=== PATIENT | female | born 1945 | race Caucasian/White ===

== ENCOUNTER 2019-06-05 08:50 | Outpatient (CLI) | payer MEDICARE, OTHER, SELFPAY ==
--- NOTE | 2019-06-05 08:52 | MM_ITS ---
WS: [id number] BILATERAL SCREENING DIGITAL MAMMOGRAM WITH CAD HISTORY: SCREENING COMPARISON: 01/31/2018 and 01/30/2017 Bilateral CC and MLO views submitted. Computer aided detection analyzed. Breast composition: There are scattered areas of fibroglandular density. No suspicious masses, microc alcifications or architectural distortion. Benign calcifications. MM/[id number] IMPRESSION: BI-RADS: 2-Benign FOLLOW UP: 1 Year Follow-up
== END 2019-06-05 08:51 | disposition home or self-care (01) ==
LOC: RADSHAW 08:50
PROVIDERS: Family Provider Internal Medicine; PCP Internal Medicine; Visit Provider Internal Medicine
DX: Z12.31 Encounter for screening mammogram for malignant neoplasm of breast (principal)
CPT/HCPCS: 77067

== ENCOUNTER 2020-07-13 11:48 | Outpatient (CLI) | payer MEDICARE, OTHER, SELFPAY ==
--- NOTE | 2020-07-13 11:54 | MM_ITS ---
WS: [id number] BILATERAL DIGITAL SCREENING MAMMOGRAPHY WITH CAD CLINICAL INFORMATION: SCREENING HISTORY: Screening mammogram. No current complaints. COMPARISON: June 05, 2019 TECHNIQUE: Bilateral CC and MLO views. FINDINGS: Scattered fibroglandular densities bilaterally. No suspicious focal mass, asymmetry, calcifications, or architectural distortion. No evidence of malignancy. Benign punctate and lucent centered calcifica tions. MM/[id number] IMPRESSION: BI-RADS: 2-Benign FOLLOW UP: 1 Year Follow-up Recommend return to annual screening mammography.
== END 2020-07-13 11:49 | disposition home or self-care (01) ==
LOC: RADSHAW 11:50
PROVIDERS: PCP Internal Medicine; Visit Provider Internal Medicine
DX: Z12.31 Encounter for screening mammogram for malignant neoplasm of breast (principal)
CPT/HCPCS: 77067

== ENCOUNTER 2021-08-14 08:34 | Outpatient (CLI) | payer MEDICARE, OTHER, SELFPAY ==
--- NOTE | 2021-08-14 08:45 | MM_ITS ---
WS: [id number] VIEWS: MLO and CC views both breasts. 3D digital tomosynthesis is also included in this exam. Comparison made with prior exam of 06/14/2014, 11/08/2015, 01/30/2017, 01/31/2018, 06/05/2019, 07/13/2020,. Findings: There was no sign of mass, architectural distortion or suspicious calcification in either breast. Sc attered fibroglandular densities MM/[place] [id number] Impression: BI-RADS: 2-Benign FOLLOW-UP: 1 Year Follow-up This mammogram was also analyzed by the Computer Aided Detection System R2 Imag e Tube Room Supervisor.
== END 2021-08-14 08:35 | disposition home or self-care (01) ==
LOC: RAD 08:41
PROVIDERS: PCP Internal Medicine; Visit Provider Internal Medicine
DX: Z12.31 Encounter for screening mammogram for malignant neoplasm of breast (principal)
CPT/HCPCS: 77063; 77067

== ENCOUNTER 2022-03-07 17:19 | Emergency (ER) | payer MEDICARE, OTHER, SELFPAY ==
[2022-03-07 17:21] VITALS: BP 205/94; PULSE 128; RESP 18; TEMP 36.8; O2SAT 96; BMI 33.4
--- NOTE | 2022-03-07 17:29 | ECG_ITS ---
[facility] Test Date: 2022-03-07 Pat Name: Catie Queen Department: Room: Gender: Female Dormitory Keeper: : 1945 Requested By: Jonh Dumont Order Number: [id number] Juana MD: Wilbert Fisher M.D. Measurements Intervals [place] Rate: 113 P: 58 [place]: 182 QRS: -38 QRSD: 81 T: 55 QT: 332 QTc: 456 Interpretive Statements SINUS TACHYCARDIA LEFT AXIS DEVIATION [QRS AXIS < -30] POSSIBLE RIGHT VENTRICULAR CONDUCTION DELAY [RSR (QR) IN V1/V2] POSSIBLE ANTERIOR MYOCARDIAL INFARCTION , PROBABLY OLD [30 ms Q WAVE IN V3/V4, OR R < 0.2 mV IN V4] No previous ECG available for comparison Electronically Signed On 03-07-2022 18:14:43 CHANNELER INSOLE by Wilbert Fisher M.D. [id number]
--- NOTE | 2022-03-07 17:30 | W.ED.ARRPALP ---
HPI - Arrhythmia/Palpitations General: Chief Complaint: Arrhythmia/Palpitations Stated Complaint: SVT CONVERTED Time Seen by Provider: 03/07/22 17:29 PFSH ED PFSH: Medical History (Updated 03/07/22 @ 17:34 by Jonh Moses DO) HTN (hypertension) Social History (Updated 03/07/22 @ 17:34 by Jonh Moses DO) Smoking and tobacco status: never smoked Alcohol intake: unknown Course Vital Signs: Vital signs: Vital Signs Temperature 98.2 F 03/07/22 17:21 Pulse Rate 128 H 03/07/22 17:21 Respiratory Rate 18 03/07/22 17:21 Blood Pressure 205/94 03/07/22 17:21 Pulse Oximetry 96 03/07/22 17:21 Oxygen Delivery Me thod 03/07/22 17:21 MDM - Arrhythmia/Palpitations Medical Decision Making Care signed out to Dr. Raymundo at change of shift. See final notes for diagnosis and disposition. Lab Data Radiology Impressions Chest X-Ray 03/07/22 17:39 IMPRESSION: No acute findings. Discharge Plan Discharge Referrals: Scott Marcos DO [Primary Care Provider] - Coding Level of Care Code ED Primary Care Sales Representative for Chg Singh
--- NOTE | 2022-03-07 17:39 | XRR_ITS ---
PROCEDURE INFORMATION: Exam: XR Chest Exam date and time: 03/07/2022 5:44 PM Age: 77 years old Clinical indication: Cough and dyspnea; Patient HX: Rapid heartbeat; Additional info: Dyspnea/cough TECHNIQUE: Imaging protocol: Radiologic exam of the chest. Views: 1 view. COMPARISON: CR XR chest 2V* [id number] 12/18/2021 8:16 AM FINDINGS: Lungs: Unremarkable. No consolidation. Pleural spaces: Unremarkable. No pleural effusion. No pneumothorax. Heart/Mediastinum: Unremarkable. No cardiomegaly. Bones/joints: Unremarkable. XR/XR chest 1V portable [id number] IMPRESSION: No acute findings.
[2022-03-07 18:05] VITALS: BP 181/94; PULSE 115; RESP 16; O2SAT 95
[2022-03-07 19:04] LABS: Basophils % 0.1 %; Hematocrit 48.2 % (37.0-47.0); Hemoglobin 15.5 g/dL (11.5-15.3); Lymphocytes % 13.4 %; Mean Corpuscular HGB Conc 32.2 g/dL (30.0-36.0); Mean Corpuscular Hemoglobin 27.8 pg (28.0-34.0); Mean Corpuscular Volume 86.4 fl (81-99); Mean Platelet Volume 10.3 fL (7.4-10.4); Monocytes # 0.3 10^3/uL (0.2-0.9); Monocytes % 3.7 %; Neutrophils # 5.94 10^3/uL (1.8-7.7); Neutrophils % 81.8 %; Nucleated Red Blood Cells % 0 %; Platelet Count 222 10^3/cmm (130-400); Red Blood Count 5.58 10^6/uL (4.1-5.3); Red Cell Distribution Width 13.5 % (12.1-15.1); White Blood Count 7.3 10^3/uL (4.0-10.0)
--- NOTE | 2022-03-07 19:16 | ED_ITS ---
HPI - Arrhythmia/Palpitations General: Chief Complaint: Arrhythmia/Palpitations Stated Complaint: SVT CONVERTED Time Seen by Provider: 03/07/22 17:29 Source: patient and EMS Mode of arrival: EMS Limitations: no limitations History of Present Illness: 69-year-old female states she sent his computer and started having severe palpitations she called EMS she was found to be in SVT heart rate in the 160s 170s I gave her adenosine and converted her heart rate is now 104 she states she feels much improved she denies any chest pain she has no history of SVT in the past. She denies any shortness of breath. Associated symptoms: Deny nausea or vomiting Review of Systems Const: Denies: fever(s), chills, body aches or change in appetite Eyes: Denies: blurry vision or eye discomfort ENMT: Denies: throat pain or dental pain Card: Reports: palpitations Resp: Denies: dyspnea GI: Denies: abdominal pain, nausea, vomiting or diarrhea : Denies: dysuria Musc: Denies: neck pain or back pain Skin/Breast: Denies: rash Neuro: Denies: headache(s) Psych: Denies: depression Mario Alberto/Lymph: Denies: easy bruising All/Imm: Denies: urticaria PFSH ED PFSH: Medical History HTN (hypertension) Social History Smoking and tobacco status: never smoked Alcohol intake: unknown Physical Exam Const: COMMON NORMALS: no acute distress, patient oriented x3 and healthy appearing HENMT: COMMON NORMALS: normocephalic and atraumatic HEAD & SCALP: normocephalic and atraumatic Eye: COMMON NORMALS: Equal, round and reactive pupils present and EOMs intact bilaterally PUPIL: Yes Equal, round and reactive pupils present Neck/C-Spine: COMMON NORMALS: full ROM and supple Chest: COMMONS NORMALS: normal inspection of the chest and normal palpation of entire chest wall Resp: COMMON NORMALS: normal respiratory effort, No retractions, No use of accessory muscles and clear to auscultation bilaterally AUSCULTATION: clear to auscultation bilaterally Cardio: COMMON NORMALS: regular rate, regular rhythm and No murmurs present (Cardio) RATE: regular rate RHYTHM: regular rhythm GI: COMMON NORMALS: Normal to inspection, nondistended, normoactive bowel sounds present, Soft to palpation, non-tender and no masses PALPATION: Yes Soft to palpation Extremity: COMMON NORMALS: normal to inspection and full ROM Neuro: COMMON NORMALS: patient oriented x3, moves all extremities and no focal motor deficits Psych: COMMON NORMALS: mental status grossly normal, Normal thought process present and cooperative THOUGHT PROCESS: Normal thought process present Skin: COMMON NORMALS: no rashes or lesions noted and no wounds GENERAL SKIN EXAM: no rashes or lesions noted Course Vital Signs: Vital signs: Vital Signs Temperature 98.2 F 03/07/22 17:21 Pulse Rate 97 03/07/22 21:39 Respiratory Rate 16 03/07/22 21:39 Blood Pressure 160/69 03/07/22 21:39 Pulse Oximetry 97 03/07/22 21:39 Oxygen Delivery Me thod 03/07/22 21:39 MDM - Arrhythmia/Palpitations Medical Decision Making Patient presents with SVT she has been asymptomatic care feels much improved she had no chest pain mild elevation of troponin likely a leak from her SVT no signs of NSTEMI we will start her on metoprolol get her cardiology follow-up she is return if worsening she understands agrees to plan. She has no signs of dissection or pulmonary embolism Lab Data 03/07/22 17:55 03/07/22 17:55 Radiology Impressions Chest X-Ray 03/07/22 17:39 IMPRESSION: No acute findings. Laboratory Results WBC 7.3 10^3/uL (4.0-10.0) 03/07/22 18:55 RBC 5.58 10^6/uL (4.1-5.3) H 03/07/22 18:55 Hgb 15.5 g/dL (11.5-15.3) H 03/07/22 18:55 Hct 48.2 % (37.0-47.0) H 03/07/22 18:55 MCV 86.4 fl (81-99) 03/07/22 18:55 MCH 27.8 pg (28.0-34.0) L 03/07/22 18:55 MCHC 32.2 g/dL (30.0-36.0) 03/07/22 18:55 RDW 13.5 % (12.1-15.1) 03/07/22 18:55 Plt Count 222 10^3/cmm (130-400) 03/07/22 18:55 MPV 10.3 fL (7.4-10.4) 03/07/22 18:55 Neut % (Auto) 81.8 % 03/07/22 18:55 Lymph % (Auto) 13.4 % 03/07/22 18:55 [place] % (Auto) 3.7 % 03/07/22 18:55 Eos % (Auto) 0.0 % 03/07/22 18:55 Baso % (Auto) 0.1 % 03/07/22 18:55 Neut # (Auto) 5.94 10^3/uL (1.8-7.7) 03/07/22 18:55 Lymph # (Auto) 1.0 10^3/uL (0.8-4.8) 03/07/22 18:55 [place] # (Auto) 0.3 10^3/uL (0.2-0.9) 03/07/22 18:55 Eos # (Auto) 0.0 10^3/uL (0.0-0.8) 03/07/22 18:55 Baso # (Auto) 0.0 10^3/uL (0.0-0.1) 03/07/22 18:55 Nucleated RBC % (auto) 0 % 03/07/22 18:55 Nucleated RBCs # 0.0 /100WBC 03/07/22 18:55 Sodium 142 mmol/L (136-145) 03/07/22 20:25 Potassium 4.2 mmol/L (3.5-5.1) 03/07/22 20:25 Chloride 104 mmol/L (98-107) 03/07/22 20:25 Carbon Dioxide 29 mmol/L (22-29) 03/07/22 20:25 Anion Gap 13.2 (5-19) 03/07/22 20:25 BUN 12 mg/dL (8-23) 03/07/22 20:25 Creatinine 0.6 mg/dL (0.5-0.9) 03/07/22 20:25 GFR Calculation Not Reportable 03/07/22 20:25 Glucose 146 mg/dL (65-115) H 03/07/22 20:25 Calculated Osmolality 296 mOsm/kg (285-295) H 03/07/22 20:25 Calcium 10.0 mg/dL (8.5-10.5) 03/07/22 20:25 Total Bilirubin 0.2 mg/dL (0.15-1.2) 03/07/22 20:25 AST 33 U/L (0-32) H 03/07/22 20:25 ALT 39 U/L (0-33) H 03/07/22 20:25 Alkaline Phosphatase 69 U/L (35-105) 03/07/22 20:25 Troponin T Baseline 31 ng/L (0-10) H 03/07/22 18:55 Troponin T 120 Minute 45.40 ng/L (0-10) H 03/07/22 20:25 Delta Troponin T 14.40 ABS# (0-10) H* 03/07/22 20:25 Total Protein 7.6 g/dL (6.6-8.7) 03/07/22 20:25 Albumin 4.1 g/dL (3.5-5.2) 03/07/22 20:25 Globulin 3.5 g/dL (1.3-4.6) 03/07/22 20:25 Discharge Plan Discharge Patient Disposition: Home Clinical Impression: Supraventricular tachycardia Prescriptions: New metoprolol succinate 25 mg tablet extended release 24 hr 25 mg PO DAILY Qty: 30 0RF Discharge Orders: Discharge ED (Routine); Ordered 03/07/22 Ordered By: Sujey Raymundo Referrals: Yeni Ramirez MD [Physician] - 1-3 days Scott Marcos DO [Primary Care Provider] - Discharge Diet: Advance as tolerated Discharge Activity: Resume usual activity Patient Instructions: Supraventricular Tachycardia (ED) Coding Level of Care Code ED Furniture Upholstery Mechanic for Chg Fwd Exam Comprehensive
[2022-03-07] MEDS: labetalol 5 mg/mL SDV 20mL 10 MG IVP (19:20)
[2022-03-07 19:23] VITALS: BP 149/84; PULSE 96; RESP 17; O2SAT 93
[2022-03-07 19:25] VITALS: BP 169/86; PULSE 95; RESP 16; O2SAT 93
--- NOTE | 2022-03-07 19:41 | ECG_ITS ---
[facility] Test Date: 2022-03-07 Pat Name: Catie Queen Department: Room: Gender: Female Search Engine Optimization Consultant: : 1945 Requested By: Sujey Raymundo Order Number: [id number] Juana MD: Lisandro Alfaro M.D. Measurements Intervals [place] Rate: 94 P: 54 [place]: 203 QRS: -44 QRSD: 80 T: 36 QT: 357 QTc: 448 Interpretive Statements SINUS RHYTHM LEFT AXIS DEVIATION [QRS AXIS < -30] POSSIBLE RIGHT VENTRICULAR CONDUCTION DELAY [RSR (QR) IN V1/V2] POSSIBLE ANTERIOR MYOCARDIAL INFARCTION , PROBABLY OLD [30 ms Q WAVE IN V3/V4, OR R < 0.2 mV IN V4] Compared to ECG 03/07/2022 17:41:03 Sinus tachycardia no longer present Myocardial infarct finding still present Electronically Signed On 03-09-2022 13:51:08 8TH GRADE MATHEMATICS TEACHER by Lisandro Alfaro M.D. [id number]
[2022-03-07 19:53] LABS: Troponin(5th) Baseline 31 ng/L (0-10)
[2022-03-07] MEDS: hyDRALAzine 20 mg/mL INJ 1 mL 10 MG IVP (19:56)
[2022-03-07 20:53] LABS: Alanine Aminotransferase 39 U/L (0-33); Albumin Level 4.1 g/dL (3.5-5.2); Alkaline Phosphatase 69 U/L (35-105); Anion Gap 13.2 (5-19); Aspartate Amino Transferase 33 U/L (0-32); Blood Urea Nitrogen 12 mg/dL (8-23); Carbon Dioxide 29 mmol/L (22-29); Chloride 104 mmol/L (98-107); Globulin 3.5 g/dL (1.3-4.6); Glucose 146 mg/dL (65-115); Osmolality Calculated 296 mOsm/kg (285-295); Potassium 4.2 mmol/L (3.5-5.1); Sodium 142 mmol/L (136-145); Total Bilirubin 0.2 mg/dL (0.15-1.2); Total Protein 7.6 g/dL (6.6-8.7)
--- NOTE | 2022-03-07 21:14 | ECG_ITS ---
Test Date: 2022-03-07 Pat Name: Catie Queen Department: Room: Gender: Female Java Developer With Security Clearance: : 1945 Requested By: Sujey Raymundo Order Number: [id number] Juana MD: Lisandro Alfaro M.D. Measurements Intervals [place] Rate: 96 P: 42 CT: 168 QRS: -45 QRSD: 86 T: 21 QT: 362 QTc: 459 Interpretive Statements SINUS RHYTHM LEFT AXIS DEVIATION [QRS AXIS < -30] POSSIBLE RIGHT VENTRICULAR CONDUCTION DELAY [RSR (QR) IN V1/V2] Compared to ECG 03/07/2022 19:41:24 Myocardial infarct finding no longer present Electronically Signed On 03-09-2022 13:55:24 MORTGAGE LOAN OFFICER ORIGINATOR by Lisandro Alfaro M.D. [id number]
[2022-03-07 21:39] VITALS: BP 160/69; PULSE 97; RESP 16; O2SAT 97
--- NOTE | 2022-03-08 10:08 | DCPLANNER ---
Addendum entered by Sara Rico 05/23/22 07:48: Patient had an appointment with heart care - patient did attend appointment Addendum entered by Sara Rico 03/13/22 12:44: Patient has a follow up appointment scheduled for Sunday, April 24, 2022 at 1:[address] Ramirez at [facility]. Clinic will call patient with appointment information. Original Note: continuum of care manager had message to schedule a follow up appointment for patient with cardiology. continuum of care manager sent patients information to the front office staff at [facility]. Patients information will be printed and reviewed. Clinic will call patient with appointment information.
== END 2022-03-07 21:46 | disposition home or self-care (01) ==
PROVIDERS: Family Medicine; Emergency Provider Emergency Medicine; PCP Internal Medicine
DX: I47.1 Supraventricular tachycardia (principal); I10 Essential (primary) hypertension
CPT/HCPCS: 36415; 71045; 80053; 84484; 85025; 93005; 96374; 96375; 99285; 99291; J0360; J3490

== ENCOUNTER → 2022-05-08 13:20 | Outpatient (BNVA) | payer MEDICARE, OTHER, SELFPAY | PROVIDERS: PCP Internal Medicine; Visit Provider Internal Medicine Cardiovascular Disease | DX: I10 Essential (primary) hypertension (principal); R00.0 Tachycardia, unspecified | CPT/HCPCS: 99203 ==

== ENCOUNTER 2022-08-31 08:06 | Outpatient (CLI) | payer MEDICARE, OTHER, SELFPAY ==
--- NOTE | 2022-08-31 08:24 | MM_ITS ---
WS: [id number] Bilateral screening 3D tomosynthesis digital mammogram, 08/31/2022 Clinical Data: SCREENING Comparison: 08/14/2021, 07/13/2020, 06/05/2019, 01/31/2018, 01/30/2007, 11/08/2015, 06/14/2014, 02/11/2013, 02/11/2012, 10/23/2010, 08/17/2009, 01/02/2008, 12/23/2006, 12/18/2005. Findings: The breast parenchymal pattern shows fibroglandular tissue. No spiculated masses or clustered calcifi cations are seen. There are no secondary signs of carcinoma. MM/[id number] Impression: 1. Negative bilateral mammogram unchanged. 2. Recommend annual screening mammograms. BIRADS: 1-Negative FOLLOW UP: 1 Year Follow-up The CAD food checkers and cashiers supervisor was used.
== END 2022-08-31 08:07 | disposition home or self-care (01) ==
LOC: RAD 08:13
PROVIDERS: PCP Internal Medicine; Visit Provider Internal Medicine
DX: Z12.31 Encounter for screening mammogram for malignant neoplasm of breast (principal)
CPT/HCPCS: 77063; 77067

== ENCOUNTER 2023-09-02 13:11 | Outpatient (CLI) | payer MEDICARE, OTHER, SELFPAY ==
--- NOTE | 2023-09-02 13:17 | MM_ITS ---
WS: [id number] BILATERAL 3D TOMOSYNTHESIS DIGITAL SCREENING MAMMOGRAPHY WITH CAD CLINICAL INFORMATION: SCREENING HISTORY: Screening mammogram. No current complaints. COMPARISON: 2022 TECHNIQUE: Bilateral CC and MLO views. FINDINGS: Scattered fibroglandular densities bilaterally. No suspicious focal mass, asymmetry, calcifications, or architectural distortion. No evidence of malignancy. Few incidental punctate calcifications. MM/[place] [id number] IMPRESSION: BI-RADS: 2-Benign FOLLOW UP: 1 Year Follow-up Recommend return to annual screening mammography.
== END 2023-09-02 13:12 | disposition home or self-care (01) ==
LOC: RAD 13:11
PROVIDERS: PCP Internal Medicine; Visit Provider Internal Medicine
DX: Z12.31 Encounter for screening mammogram for malignant neoplasm of breast (principal); R92.323 Mammographic fibroglandular density, bilateral breasts; R92.1 Mammographic calcification found on diagnostic imaging of breast
CPT/HCPCS: 77063; 77067

== ENCOUNTER 2024-09-07 08:34 | Outpatient (CLI) | payer MEDICARE, OTHER, SELFPAY ==
--- NOTE | 2024-09-07 08:41 | MM_ITS ---
WS: [id number] BILATERAL SCREENING DIGITAL TOMOSYNTHESIS MAMMOGRAM WITH CAD HISTORY: SCREENING COMPARISON: 09/02/2023, 08/31/2022 Bilateral CC and MLO views with tomosynthesis and synthetic mammography submitted. Computer aided detection analyzed. Breast composition: There are scattered areas of fibroglandular density. No suspicious masses, microcalcifications or architectural distortion. Benign round and rodlike calcifications in each breast. MM/MM scr BI tomosynthesis [id number] IMPRESSION: BI-RADS: 2 - Benign. FOLLOW UP: 1 Year Follow-up
== END 2024-09-07 08:35 | disposition home or self-care (01) ==
PROVIDERS: PCP Family Medicine; Visit Provider Family Medicine
DX: Z12.31 Encounter for screening mammogram for malignant neoplasm of breast (principal)
CPT/HCPCS: 77063; 77067